=== PATIENT | male | born 1955 | race Caucasian/White ===

== ENCOUNTER 2024-11-17 09:41 | Day surgery (SDC) | payer OTHER, SELFPAY ==
[2024-10-11 12:52] VITALS: BMI 29.9
--- NOTE | 2024-11-17 | PATH_ITS ---
[facility] Accession Number: [id number] No. of containers..01 Tissue . 01 Material submitted: . colon - COLON, RIGHT POLYP . 01 Diagnosis: RIGHT COLON POLYP: Tubular adenoma. MRV 11/29/2024 1243 Local . 01 Electronically signed: . Juliano Gomez MD, PhD, Pathologist NPI- [id number] . 01 Gross description: . Received in formalin with two identifiers and right colon polyp, is a single alvarado soft tissue fragment, 0.7 x 0.5 x 0.3 cm. Bisected and submitted entirely in A1. ([id number]) /MRV 11/26/2024 1733 Local . 01 Pathologist provided ICD-10: D12.6 . 01 CPT . 643076 Specimen Comment: A courtesy copy of this report has been sent to [phone] Performed at: [address] [id number] MD Mak Bello MD Phone: [phone]
--- NOTE | 2024-11-17 10:34 | PM.HP.IH.1 ---
History of Present Illness History of Present Illness Date Patient Seen: 11/17/24 Chief complaint: Colonoscopy Narrative: History of multiple and large colon polyps need for follow-up colonoscopy at a 3 year interval. [facility] Medical History (Updated 10/11/24 @ 12:49 by Polly Dover RN) CVA (cerebral vascular accident) (~2021) Amputation finger Diabetes HLD (hyperlipidemia) HTN (hypertension) Social History household members: children Smoking Status: Current every day smoker alcohol intake: current Meds Home Medications and Allergies Home Medications ?Medication ?Instructions ?Recorded ?Confirmed ?Type sodium,potassium,mag sulfates 17.5 See Rx Instructions PO .COMPLEX 10/08/24 Rx gram-3.13 gram-1.6 gram oral soln #354 mL (Suprep Bowel Prep Kit) amlodipine 10 mg tablet 10 mg PO DAILY 10/11/24 10/11/24 History aspirin 81 mg capsule 81 mg PO DAILY 10/11/24 10/11/24 History atorvastatin 80 mg tablet 80 mg PO DAILY 10/11/24 10/11/24 History losartan 100 1 tab PO DAILY 10/11/24 10/11/24 History mg-hydrochlorothiazide 12.5 mg tablet metformin 500 mg tablet 500 mg PO BID 10/11/24 10/11/24 History Allergies Allergy/AdvReac Type Severity Reaction Status Date / Time lisinopril AdvReac Cough Verified 11/17/24 10:29 Exam Narrative Exam Narrative: Oropharynx free of lesions Chest clear to auscultation percussion Cardiac exam reveals no S3 or murmur Assessment & Plan Assessment & Plan narrative: History of large and multiple colon polyps need for follow-up colonoscopy. Risks, benefits, alternatives have been explained. Time-Based Coding :: [TOTAL MINUTES] spent with patient and on the chart (including review of chart, obtaining history, exam, reviewing outside data, placing orders, documenting exam and treatment plan, and counseling patient) on [DATE]. [employer] Classroom Coordinator Document charge(s): No
--- NOTE | 2024-11-17 10:35 | P.OP.COLON_ITS ---
Operative Date/Time/Diagnoses Date of procedure: 11/17/24 Time of procedure: 11:33 Pre-op diagnosis: See indication and findings Post-op diagnosis: same Procedure & Clinicians Study performed: Colonoscopy Same procedure(s) as scheduled: Yes Indications: Large and multiple colon polyp history Surgeon: Avelina Sparks Anesthesia Type: Other Procedure Notes Procedure in detail: After informed consent was obtained the patient was placed in left lateral decubitus position. The video colonoscope was introduced the rectum slowly advanced cecum. Preparation was good. On slow withdrawal mucosa was carefully examined. The scope was removed. The patient tolerated procedure well. Blood Loss none Complications none Sedation mac Findings 1. Residual polypoid tissue adjacent to large tattoo. This measured appro ximately 1.2 by 1 cm. Saline was injected and it raised very well throughout. Using a hot snare this was removed completely and retrieved. There was no need to use APC on the edges. 2. Scattered sigmoid diverticulosis 3. Otherwise negative colonoscopy to cecum Mr. Grande in should come back in 3 years at the latest to re-evaluate the site and look for additional new polyps.
[2024-11-17 10:39] VITALS: BP 169/88; PULSE 70; RESP 16; TEMP 36.2; O2SAT 100
[2024-11-17] MEDS: LACTATED RINGERS 1,000 ML 42 ML IV (10:44)
[2024-11-17 11:34] VITALS: BP 124/69; PULSE 62; RESP 12; TEMP 36.7; O2SAT 98
[2024-11-17 11:39] VITALS: BP 128/72; PULSE 61; RESP 16; O2SAT 95
== END 2024-11-17 12:05 | disposition home or self-care (01) ==
PROVIDERS: Referring Provider Internal Medicine Gastroenterology; Visit Provider Internal Medicine Gastroenterology
PROC: 0DJD8ZZ Inspection of Lower Intestinal Tract, Via Natural or Artificial Opening Endoscopic (ICD-10-PCS; CPT 45378; principal; 2024-11-17 11:00)
DX: Z12.11 Encounter for screening for malignant neoplasm of colon (principal); Z86.0100 Personal history of colon polyps, unspecified; K57.30 Diverticulosis of large intestine without perforation or abscess without bleeding; D12.2 Benign neoplasm of ascending colon
CPT/HCPCS: 45385; 45381; 82962; J2704